=== PATIENT | male | born 1995 | race Caucasian/White ===

== ENCOUNTER 2018-12-31 21:25 | Emergency (ER) | payer SELFPAY ==
[2019-01-01 00:29] LABS: ADD MAN DIFF? NO
[2019-01-01 00:32] LABS: BASOPHIL # 0.1 10^3/ul (0.0-0.1); BASOPHILS % 0.5 % (0.0-2.0); EOSINOPHILS # 0.1 10^3/ul (0.0-0.5); EOSINOPHILS % 0.6 % (0.0-7.0); HEMATOCRIT 45.7 % (42.0-52.0); HEMOGLOBIN 15.7 g/dl (14.0-18.0); LYMPHOCYTES # 2.6 10^3/ul (0.8-2.9); MEAN CORPUSCULAR HEMOGLOBIN 29.9 pg (29.0-33.0); MEAN CORPUSCULAR HGB CONC 34.4 g/dl (32.0-37.0); MEAN PLATELET VOLUME 10.7 fl (7.4-10.4); MONOCYTE # 0.9 10^3/ul (0.3-0.9); MONOCYTES % 7.8 % (0.0-11.0); NEUTROPHIL # 8.2 10^3/ul (1.6-7.5); NEUTROPHILS % 68.8 % (39.0-77.0); PLATELET COUNT 291 10^3/UL (140-415); RED BLOOD COUNT 5.25 10^6/ul (4.70-6.10); RED CELL DISTRIBUTION WIDTH 11.8 % (11.5-14.5)
[2019-01-01 00:32] LABS: WHITE BLOOD COUNT 11.9 10^3/ul (4.8-10.8)
[2019-01-01] MEDS: METHYLPREDNISOLONE 125 MG INJ IV (00:33)
[2019-01-01] MEDS: CEFTRIAXONE 1 GM/50 ML (PMX) 50 ML IVPB (00:33)
[2019-01-01] MEDS: ONDANSETRON 4 MG INJ IV (00:33)
[2019-01-01] MEDS: morphine 4 MG/ML VIAL IV (00:33)
[2019-01-01 00:50] LABS: ALANINE AMINOTRANSFERASE 20 IU/L (13-69); ALBUMIN 5.1 g/dl (3.3-4.9); ALBUMIN/GLOBULIN RATIO 1.45; ALKALINE PHOSPHATASE 99 IU/L (42-121); ANION GAP 14 (5-13); ASPARTATE AMINO TRANSFERASE 24 IU/L (15-46); BILIRUBIN,INDIRECT 0.9 mg/dl (0-1.1); BILIRUBIN,TOTAL 0.9 mg/dl (0.2-1.3); BLOOD UREA NITROGEN 14 mg/dl (7-20); CALCIUM 10.2 mg/dl (8.4-10.2); CARBON DIOXIDE 26 mmol/L (21-31); CHLORIDE 102 mmol/L (97-110); CREATININE 0.68 mg/dl (0.61-1.24); Estimated GFR > 60 mL/min (>60); GLUCOSE 97 mg/dl (70-220); POTASSIUM 3.5 mmol/L (3.5-5.1); SODIUM 142 mmol/L (135-144); TOTAL PROTEIN 8.6 g/dl (6.1-8.1)
[2019-01-01 00:59] LABS: MONOTEST Negative (NEG)
[2019-01-01] MEDS: IOHEXOL 300MG/ML 150 ML BTL (01:24)
[2019-01-01] MEDS: SOD CHLORIDE 0.9% 100 ML (01:24)
== END 2019-01-01 03:16 | disposition home or self-care (01) ==
LOC: FTE 01-01 03:16
DX: J02.9 Acute pharyngitis, unspecified (principal); J03.90 Acute tonsillitis, unspecified
CPT/HCPCS: 36415; 70491; 80053; 85025; 86308; 87880; 96374; 96375; 99285-25